=== PATIENT | female | born 1960 | race Two or more races ===

== ENCOUNTER 2019-07-17 14:29 | Emergency (ER) | payer SELFPAY ==
[~2019-07-17] VITALS: Ht 162.6 cm; Wt 63.5 kg
[2019-07-17] MEDS ORDERED: LISINOPRIL10 MG ORAL (14:37)
[2019-07-17 15:36] VITALS: BP 139/77
--- NOTE | 2019-07-17 15:37 | NUR ---
ED Nurse Note:CT scan was done, pain meds given
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
--- NOTE | 2019-07-17 16:05 | NUR ---
ED Nurse Note: Removed cervical collar as ordered.
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
[2019-07-17] MEDS ORDERED: LIDODERM700 M1 TOPIC (16:24)
[2019-07-17] MEDS ORDERED: ROBAXIN-750750 MG PO (16:24)
[2019-07-17] MEDS ORDERED: TYLENOL EXTRA500 MG ORAL (16:24)
[2019-07-17 16:28] VITALS: BP 139/77
--- NOTE | 2019-07-17 16:29 | NUR ---
ER DISCHARGE NOTE: Patient is cleared to be discharged per ERMD, pt is aox4, on room air, with stable vital signs. pt was given dc and prescription instructions, pt was able to verbalize understanding, pt is able to ambulate with steady gait. pt took all belongings, left er with family member
== END 2019-07-17 16:28 | disposition home or self-care (01) ==
LOC: EDBD 14:29 → EMR 14:50
DX: S16.1XXA Strain of muscle, fascia and tendon at neck level, initial encounter (principal); M54.6 Pain in thoracic spine; R51 Headache; I10 Essential (primary) hypertension; V43.52XA Car driver injured in collision with other type car in traffic accident, initial encounter; Y92.410 Unspecified street and highway as the place of occurrence of the external cause
CPT/HCPCS: 70450; 72125; 72128; 99284